=== PATIENT | female | born 1985 | race Caucasian/White ===

== ENCOUNTER 2022-07-15 22:27 | Outpatient (REF) | payer MEDICAID, SELFPAY ==
[2022-07-15 21:50] LABS: Abs Immature Grans 0.09 10^3/uL (0.0-0.06); Absolute Basophil Count 0.06 10^3/uL (0.0-0.2); Absolute Eosinophil Count 0.15 10^3/uL (0.0-0.7); Basophils % 0.6; Eosinophils % 1.4; HCT 37.2 % (36.0-46.0); HGB 12.2 g/dL (11.2-15.7); Immature Grans % 0.8; Lymphocytes % 29.6; MCH 28.2 pg (27.0-33.0); MCHC 32.8 % (32.0-36.0); MCV 86 fL (80-95); MPV 11.4 fL (8.0-11.0); Monocytes % 4.6; Platelet Count 359 10^3/uL (130-400); RBC 4.32 10^6/uL (3.93-5.22); RDW 14.2 % (11.7-14.6); RDW-SD 44.7 fL
[2022-07-15 22:07] LABS: ALT 20 U/L (14-59); AST 22 U/L (15-37); Albumin 3.8 g/dL (3.4-5.0); Alkaline Phosphatase 58 U/L (46-116); Anion Gap 5.3 mmol/L (3-11); BUN 10 mg/dL (7-18); Bilirubin, Total 0.3 mg/dL (0.2-1.0); CO2 27.7 mmol/L (21.0-32.0); CREATININE 0.6 mg/dL (0.55-1.02); Calcium 8.8 mg/dL (8.5-10.1); Calculated LDL 100 mg/dL (<100); Chloride 104 mmol/L (98-107); Cholesterol 168 mg/dL (<200); Estimated GFR 119.23 (mL/min/1.73m2); Glucose 79 mg/dL (74-106); HDL Cholesterol 59 mg/dL (40-60); Sodium 137 mmol/L (136-145); TSH (W/Ref FT4) 1.52 uIU/mL (0.36-3.74); Total Protein 7.1 g/dL (6.4-8.2); Triglyceride 45 mg/dL (<150)
== END 2022-07-15 22:28 | disposition home or self-care (01) ==
LOC: NCHCN 22:27
PROVIDERS: Visit Provider Nurse Practitioner Family
DX: Z00.00 Encounter for general adult medical examination without abnormal findings (principal)
CPT/HCPCS: 80053; 80061; 84443; 85025

== ENCOUNTER 2022-09-09 16:36 | Outpatient (REF) | payer MEDICAID, SELFPAY ==
--- NOTE | 2022-09-09 16:00 | PAPFT_PTH ---
PATIENT: Emmie Dominguez LOC: [facility] U#:[id number] AGE/SX: 37/F ROOM: RE09/09/[address]: Lea Smith : 1985 BED: DIS: 09/09/2022 SPEC #: [id number] RECD: 09/10/22 13:01 STATUS: ALEXEY FU #: [id number] RAOUL: 09/09/22 16:[address]: Lea Smith DEPT: [facility] Cytology RECD BY: Antonette Byrne Tissues: 1 - CX/ENDOCX FOR PAP SMEARS Procedures: PAP THIN PREP/[facility] Screening HPV DNA PROBE Comments: [id number] (CHLAMYDIA/GC)
[2022-09-11 14:48] LABS: Chlamydia Result Negative (Negative); GC Result Negative (Negative)
== END 2022-09-09 16:37 | disposition home or self-care (01) ==
LOC: NCHCN 16:36
PROVIDERS: Visit Provider Nurse Practitioner Family
DX: Z11.3 Encounter for screening for infections with a predominantly sexual mode of transmission (principal); Z12.4 Encounter for screening for malignant neoplasm of cervix; Z11.51 Encounter for screening for human papillomavirus (HPV)
CPT/HCPCS: 87491; 87591; 88142; 87624

== ENCOUNTER 2023-03-30 18:48 | Outpatient (REF) | payer MEDICAID, SELFPAY ==
[2023-03-30 21:11] LABS: HCT 38.7 % (36.0-46.0); HGB 12.9 g/dL (11.2-15.7); MCH 27.9 pg (27.0-33.0); MCHC 33.3 % (32.0-36.0); MCV 84 fL (80-95); MPV 11.4 fL (8.0-11.0); Platelet Count 347 10^3/uL (130-400); RBC 4.63 10^6/uL (3.93-5.22); RDW 15.6 % (11.7-14.6); RDW-SD 47.2 fL; WBC 11.31 10^3/uL (4.4-10.8)
[2023-03-30 21:35] LABS: ALT 19 U/L (14-59); AST 13 U/L (15-37); Alkaline Phosphatase 66 U/L (46-116); BUN 7 mg/dL (7-18); Bilirubin, Total 0.5 mg/dL (0.2-1.0); CREATININE 0.7 mg/dL (0.55-1.02); Calcium 9.4 mg/dL (8.5-10.1); Chloride 102 mmol/L (98-107); Estimated GFR 114.88 (mL/min/1.73m2); Glucose 78 mg/dL (74-106); Sodium 136 mmol/L (136-145); TSH 2.79 uIU/mL (0.36-3.74); Total Protein 7.7 g/dL (6.4-8.2)
== END 2023-03-30 18:49 | disposition home or self-care (01) ==
LOC: NCHCN 18:48
PROVIDERS: Visit Provider Family Medicine
DX: R42 Dizziness and giddiness (principal)
CPT/HCPCS: 80053; 85027; 84443

== ENCOUNTER 2023-08-27 15:09 | Outpatient (REF) | payer MEDICAID, SELFPAY ==
[2023-08-27 15:44] LABS: Abs Immature Grans 0.08 10^3/uL (0.0-0.06); Absolute Basophil Count 0.08 10^3/uL (0.0-0.2); Absolute Lymphocyte Count 3.16 10^3/uL (1.2-3.4); Absolute Monocyte Count 0.71 10^3/uL (0.1-0.8); Absolute Neutrophil Count 8.28 10^3/uL (1.2-6.7); Basophils % 0.6; Eosinophils % 1.8; HCT 39.9 % (36.0-46.0); HGB 12.7 g/dL (11.2-15.7); Immature Grans % 0.6; Lymphocytes % 25.2; MCH 27.1 pg (27.0-33.0); MCHC 31.8 % (32.0-36.0); MCV 85 fL (80-95); MPV 11.7 fL (8.0-11.0); Monocytes % 5.7; Neutrophils % 66.1; Platelet Count 345 10^3/uL (130-400); RBC 4.69 10^6/uL (3.93-5.22); RDW-SD 46.3 fL; WBC 12.53 10^3/uL (4.4-10.8)
[2023-08-27 15:46] LABS: Absolute Eosinophil Count 0.23 10^3/uL (0.0-0.7)
[2023-08-27 16:04] LABS: ALT 12 U/L (14-59); AST 21 U/L (15-37); Albumin 3.8 g/dL (3.4-5.0); Alkaline Phosphatase 60 U/L (46-116); Anion Gap 7.2 mmol/L (3-11); BUN 9 mg/dL (7-18); Bilirubin, Total 0.3 mg/dL (0.2-1.0); CO2 26.8 mmol/L (21.0-32.0); CREATININE 0.7 mg/dL (0.55-1.02); Calcium 9.3 mg/dL (8.5-10.1); Chloride 106 mmol/L (98-107); Estimated GFR 114.16 (mL/min/1.73m2); Glucose 71 mg/dL (74-106); Lipase 55 U/L (16-77); Potassium 4.6 mmol/L (3.5-5.1); Sodium 140 mmol/L (136-145); Total Protein 7.5 g/dL (6.4-8.2)
== END 2023-08-27 15:10 | disposition home or self-care (01) ==
LOC: NCHCN 15:09
PROVIDERS: PCP Nurse Practitioner Family; Visit Provider Nurse Practitioner Family
DX: R11.2 Nausea with vomiting, unspecified (principal)
CPT/HCPCS: 80053; 83690; 85025